=== PATIENT | female | born 1980 | race Caucasian/White ===

== ENCOUNTER 2017-10-09 16:58 | Emergency (ER) | payer MEDICAID ==
[2017-10-09] MEDS: IPRATROPIUM (NEB) 0.5 MG/2.5 ML AMP HHN (23:19)
[2017-10-09] MEDS: ALBUTEROL 0.083% (NEB) 2.5 MG/3 ML AMP HHN (23:19)
[2017-10-09] MEDS: predniSONE 20 MG TAB PO (23:32)
[2017-10-10] MEDS: LEVALBUTEROL (NEB) 1.25 MG/0.5 ML AMP HHN (01:23)
== END 2017-10-10 03:52 | disposition home or self-care (01) ==
LOC: E/R 16:58
DX: J45.901 Unspecified asthma with (acute) exacerbation (principal)
CPT/HCPCS: 71045; 94645; 99284-25

== ENCOUNTER 2017-10-11 14:00 | Emergency (ER) | payer MEDICAID ==
[2017-10-11] MEDS: SOD CHLORIDE 0.9% 1,000 ML IV (14:29)
[2017-10-11] MEDS: DEXAMETHASONE 10 MG/ML 1 ML INJ IV (14:29)
[2017-10-11] MEDS: ALBUTEROL 0.083% (NEB) 2.5 MG/3 ML AMP NEB (14:30)
[2017-10-11] MEDS: IPRATROPIUM (NEB) 0.5 MG/2.5 ML AMP NEB (14:31)
[2017-10-11] MEDS: LEVOFLOXACIN 500MG/D5W (PMX) 100 ML IVPB (14:32)
[2017-10-11] MEDS: ALBUTEROL 0.083% (NEB) 2.5 MG/3 ML AMP HHN (16:31)
[2017-10-11] MEDS: IPRATROPIUM (NEB) 0.5 MG/2.5 ML AMP HHN (16:31)
== END 2017-10-11 17:39 | disposition home or self-care (01) ==
LOC: FTE 14:00
DX: R06.00 Dyspnea, unspecified (principal); J45.901 Unspecified asthma with (acute) exacerbation; E66.01 Morbid (severe) obesity due to excess calories
CPT/HCPCS: 71045; 94640; 94664; 96374; 96375; 99285-25

== ENCOUNTER 2018-07-30 08:16 | Emergency (ER) | payer MEDICAID ==
[2018-07-30] MEDS: predniSONE 20 MG TAB PO (08:57)
[2018-07-30] MEDS: KETOROLAC 30 MG INJ IM (08:58)
[2018-07-30 09:08] LABS: ADD UMIC YES; UR ASCORBIC ACID NEGATIVE (NEGATIVE); UR BACTERIA FEW /HPF (NONE SEEN); UR BILIRUBIN (Dip) NEGATIVE (NEGATIVE); UR BLOOD (Dip) 3+ mg/dL (NEGATIVE); UR CLARITY SLIGHTLY CLOUDY (CLEAR); UR COLOR YELLOW (YELLOW); UR GLUCOSE (Dip) NEGATIVE (NEGATIVE); UR KETONES (Dip) NEGATIVE (NEGATIVE); UR LEUKOCYTE ESTERASE (Dip) NEGATIVE Leu/ul (NEGATIVE); UR NITRITE (Dip) NEGATIVE (NEGATIVE); UR RBC 27 /HPF (0-5); UR SPECIFIC GRAVITY (Dip) 1.015 (1.003-1.030); UR SQUAMOUS EPITHELIAL CELL FEW /HPF (FEW); UR TOTAL PROTEIN (Dip) NEGATIVE (NEGATIVE); UR UROBILINOGEN (Dip) NEGATIVE (NEGATIVE); UR WBC 3 /HPF (0-5)
== END 2018-07-30 09:38 | disposition home or self-care (01) ==
LOC: FTE 08:16
DX: M54.41 Lumbago with sciatica, right side (principal); J45.909 Unspecified asthma, uncomplicated
CPT/HCPCS: 81001; 81025; 96372; 99284-25

== ENCOUNTER 2018-08-28 18:00 | Emergency (ER) | payer MEDICAID ==
[2018-08-28] MEDS: METHOCARBAMOL 750 MG TAB PO (20:02)
[2018-08-28] MEDS: DEXAMETHASONE 10 MG/ML 1 ML INJ IM (20:02)
[2018-08-28] MEDS: KETOROLAC 30 MG INJ IM (20:03)
== END 2018-08-28 20:24 | disposition home or self-care (01) ==
LOC: FTE 18:00
DX: M54.9 Dorsalgia, unspecified (principal); J45.909 Unspecified asthma, uncomplicated
CPT/HCPCS: 81025; 96372; 99284-25